=== PATIENT | male | born 1945 | race Caucasian/White ===

== ENCOUNTER 2017-04-11 13:13 | Observation (INO) | payer MEDICARE ==
--- OUTSIDE RECORDS SUMMARY | 2017-04-11 13:54 | XMS REPORT ---
:1945 External Reference #:[id number] Author Organization [facility] Address [address] [place] [address] Phone [phone] Care Team Providers Name Role Phone Raymundo Wooten M.D. Care Team Information Geospatial Specialist Unavailable Jose Arambula Primary Care Physician Unavailable Payers Type Date Identification Numbers Payment Provider Subscriber Commercial Policy Number: [id number] [facility] PayID: [id number] [address] [address] [place] [address] Problems Date Description Provider Status Onset: 04/04/2017 Essential hypertension Luis Bowles MD Active Onset: 04/04/2017 Cervico-occipital neuralgia Luis Bowles MD Active Onset: 04/04/2017 Otalgia Luis Bowles MD Active Family History Date Family Member(s) Problem(s) Comments General Cancer General Vertigo Social History Type Date Description Comments Occupation Retired Cigarette Use Former Cigarette Smoker 1 Pack Smoked for 6 years. Quit at Daily age 22. Cigars Never Smoked Cigars Pipe Former Pipe Smoker, Smoked 4 Smoked for 8 years. Quit at Pipes Daily age 30. Smokeless Tobacco Never Used Smokeless Tobacco ETOH Use Does not drink alcohol Allergies, Adverse Reactions, Alerts Date Description Reaction Status Severity Comments 04/04/2017 NKDA active Medications Medication Date Status Form Strength Qnty SIG Indications Ordering Provider Simvastatin / Active Tablets 20mg Jose Arambula 0000 Levothyroxine / Active Tablets 50mcg Jose Arambula Sodium 0000 Meclizine HCL / Active Tablets 25mg Magdietderks 0000 M.D., Raymundo Flecainide / Active Tablets 50mg Stefek,Micheal Acetate 0000 M.D. Atenolol / Active Tablets 25mg Heetderks 0000 M.D., Raymundo Clobetasol / Active Cream 0.05% Unknown Propionate 0000 Metoprolol / Active Tablets 50mg Take One Unknown Tartrate 0000 Tablet By Mouth Every Morning And Take Two Tablets By Mouth A Aspirin 81 Low / Active Chewtabs 81mg daily Unknown Dose 0000 Ranitidine HCL / Active Tablets 150mg bid Unknown 0000 Rolaids / Active Chewtabs 550-110mg 2 daily Unknown 0000 Vital Signs Date Vital Result Comment 04/04/2017 BP Systolic 163 mmHg BP Diastolic 101 mmHg Heart Rate 67 /min Respiratory Rate 18 /min Weight 245.00 lb Weight in kg's 111.132 Height 72 inches 6'0" Height in cm's 182.9 cm BMI (Body Mass Index) 33.2 kg/m2 Results Description No Information Procedures Date CPT Code Description Status 04/04/2017 40699 Tympanometry Completed Encounters Type Date Location Provider CPT E/M Dx Office Visit 04/04/2017 9:45a [place] 03/10/07 [place] [address] H92.02 M54.81 Plan of Care 04/04/2017 - Luis Bowles MDH92.02 Otalgia, left earComments:My clinical impression is a patient with otalgia most likely radiate from occipital neuralgia I suggest warm compresses nonsteroidals and occasional inject the area with steroids and a anesthetic for intractable symptoms he will return back if necessary no ear pathology identified.M54.81 Occipital neuralgia
[2017-04-11 16:38] LABS: ABS Basophils 0 10^3/ul (0-0.2); ABS Eosinophils 0.1 10^3/ul (0-0.6); ABS Lymphocytes 1.6 10^3/ul (1.0-4.8); ABS Monocytes 0.4 10^3/ul (0-0.8); ABS Neutrophils 4.6 10^3/ul (1.5-7.7); ABS Nucleated RBC 0 10^3/ul; Eosinophil % 1.1 % (0-6); Hematocrit 45 % (42-52); Hemoglobin 15.7 g/dl (14.0-18.0); Lymphocyte % 23.5 % (25-47); Mean Corpuscular HGB Conc 35 g/dl (31-36); Mean Corpuscular Hemoglobin 31 pg (27-31); Mean Corpuscular Volume 90 fL (80-94); Mean Platelet Volume 10 um3 (7.4-10.4); Nucleated Red Blood Cells % 0.1; Platelet Count 173 10^3/ul (150-450); Red Blood Count 5.05 10^6/ul (4.0-5.4); Red Cell Distribution Width 14 % (10.5-15); White Blood Count 6.7 10^3/ul (3.5-10.8)
[2017-04-11 16:53] LABS: Urine Appearance Clear; Urine Blood 1+ (Negative); Urine Color Yellow; Urine Ketones Trace (Negative); Urine Protein Negative (Negative); Urine Specific Gravity 1.016 (1.010-1.030); Urine Urobilinogen Negative (Negative)
[2017-04-11 17:00] LABS: EGFR Non-African American 79.6 (>60)
--- NOTE | 2017-04-11 17:28 | RAD ---
INDICATION: Shortness of breath. COMPARISON: Comparison is made with a prior chest x-ray study from October 27, 2013. TECHNIQUE: Dual-energy PA and lateral views of the chest were obtained. FINDINGS: The heart is within normal limits in size. Mediastinal and hilar contours appear within normal limits. There is elevation of the right hemidiaphragm which is unchanged. The lungs are hyperinflated and clear. No pleural effusion is seen. IMPRESSION: FINDINGS SUGGESTIVE OF COPD, NO EVIDENCE FOR ACUTE FINDING.
[2017-04-11] MEDS ORDERED: Iohexol 350* (CONTRAST) 500 ML MDV IV ONE (18:03)
[2017-04-11] MEDS ORDERED: Enoxaparin(*) 100 MG/ML SYR SUBCUT ONE (18:20)
--- NOTE | 2017-04-11 18:24 | RAD ---
INDICATION: Shortness of breath. COMPARISON: Comparison is made with a prior chest x-ray study from April 11, 2007. TECHNIQUE: A CT angiogram of the chest was performed with intravenous following intravenous injection of 84 ml of Omnipaque 350 nonionic contrast. Contiguous axial sections were obtained from the lung apices through the lung bases. Images were reconstructed in the coronal and sagittal planes. FINDINGS: There are intraluminal filling defects bilaterally in upper lobe segmental artery branches, within the distal portion of the main pulmonary arteries, the right interlobar artery and bilateral lower lobe segmental artery branches. The heart is within normal limits in size. No pericardial effusion is present. The thoracic aorta is normal in caliber and demonstrates homogeneous contrast opacification. No significant enlarged mediastinal or hilar lymph nodes are seen. Images of the upper abdomen demonstrate fatty infiltration of the liver. The patient is status post cholecystectomy. There is a small a moderate size hiatal hernia. There are mild dependent bilateral lower lobe infiltrates most consistent with atelectasis. No pleural effusion is present. No significant focal osseous abnormality is seen. The results of this exam were discussed with the referring clinician. IMPRESSION: MULTIPLE BILATERAL PULMONARY EMBOLI.
--- NOTE | 2017-04-11 18:59 | ED ---
Radha Mcgregor Nilda, scribed for Justin Rogers MD on 04/11/17 at 1623 . Respiratory - HPI Summary HPI Summary: This patient is a 71 year old M presenting to [facility] accompanied by with a chief complaint of constant SOB since waking up this morning. The patient rates the pain 0/10 in severity. Symptoms aggravated by exertion and alleviated by rest. Patient reports palpitations, non-productive cough, and wheezing. Patient denies CP, fever, and chills. No PMHx asthma or COPD. Pt states no new medications. - History of Current Complaint Chief Complaint: EDShortnessOfBreath Stated Complaint: SOB Time Seen by Provider: 04/11/17 15:54 Hx Obtained From: Patient Onset/Duration: Sudden Onset, Lasting Hours, Still Present Timing: Constant Pain Intensity: 0 Character: Cough (Nonproductive) Aggravating Factor(s): Exertion Alleviating Factor(s): Rest Associated Signs and Symptoms: SOB, Wheezing - Allergy/Home Medications Allergies/Adverse Reactions: Allergies Allergy/AdvReac Type Severity Reaction Status Date / Time No Known Allergies Allergy Verified 03/21/15 14:01 PMH/Surg Hx/FS Hx/Imm Hx Endocrine/Hematology History: Reports: Hx Thyroid Disease Denies: Hx Diabetes, Hx Systemic Lupus Erythematosus Cardiovascular History: Reports: Hx Hypercholesterolemia, Hx Hypertension Denies: Hx Angina, Hx Congestive Heart Failure, Hx Coronary Artery Disease, Hx Myocardial Infarction, Hx Pacemaker/ICD, Hx Valvular Heart Disease Respiratory History: Reports: Hx Sleep Apnea - CPAP Denies: Hx Asthma GI History: Reports: Hx Gastroesophageal Reflux Disease History: Reports: Hx Kidney Stones, Other Problems/Disorders - acid reflux Musculoskeletal History: Reports: Hx Arthritis, Hx Orthopedic Injury - hx broken ankle Denies: Hx Rheumatoid Arthritis Sensory History: Reports: Hx Contacts or Glasses Denies: Hx Hearing Aid Opthamlomology History: Reports: Hx Contacts or Glasses Neurological History: Reports: Hx Seizures - after a fever Psychiatric History: Denies: Hx Panic Disorder - Surgical History Surgery Procedure, Year, and Place: cholecystectomy. umbilical hernia repair. Left inguinal hernia repair Hx Anesthesia Reactions: No Infectious Disease History: No Infectious Disease History: Denies: Traveled Outside the [place] in Last 30 Days - Family History Known Family History: Positive: Hypertension - Social History Alcohol Use: None Hx Substance Use: No Substance Use Type: Reports: None Hx Tobacco Use: Yes Smoking Status (MU): Former Smoker Type: Cigarettes Length of Time of Smoking/Using Tobacco: 16 years. started in 2 and quite 1977. smoked 1/2ppd Have You Smoked in the Last Year: No Review of Systems Negative: Fever, Chills Positive: Palpitations. Negative: Chest Pain Positive: Shortness Of Breath, Cough, Other - wheezing All Other Systems Reviewed And Are Negative: Yes Physical Exam - Summary Physical Exam Summary: VITAL SIGNS: Reviewed. GENERAL: Patient is a well-developed and nourished male who is lying comfortable in the stretcher. Patient is not in any acute respiratory distress. HEAD AND FACE: No signs of trauma. No ecchymosis, hematomas or skull depressions. No sinus tenderness. EYES: PERRLA, EOMI x 2, No injected conjunctiva, no nystagmus. EARS: Hearing grossly intact. Ear canals and tympanic membranes are within normal limits. MOUTH: Oropharynx within normal limits. NECK: Supple, trachea is midline, no adenopathy, no JVD, no carotid bruit, no c- spine tenderness, neck with full ROM. CHEST: Symmetric, no tenderness at palpation LUNGS: Clear to auscultation bilaterally. No wheezing or crackles. CVS: Irregular rate and rhythm, S1 and S2 present, no murmurs or gallops appreciated. ABDOMEN: Soft, non-tender. No signs of distention. No rebound no guarding, and no masses palpated. Bowel sounds are normal. EXTREMITIES: FROM in all major joints, no edema, no cyanosis or clubbing. NEURO: Alert and oriented x 3. No acute neurological deficits. Speech is normal and follows commands. SKIN: Dry and warm Triage Information Reviewed: Yes Vital Signs On Initial Exam: Initial Vitals Temp Pulse Resp BP Pulse Ox 98.2 F 79 20 165/75 94 04/11/17 13:22 04/11/17 13:22 04/11/17 13:22 04/11/17 13:22 04/11/17 13:22 Vital Signs Reviewed: Yes Diagnostics - Vital Signs Vital Signs Temp Pulse Resp BP Pulse Ox 04/11/17 16:00 72 14 148/85 92 04/11/17 15:30 77 13 158/93 94 04/11/17 15:17 0 04/11/17 15:16 181/73 04/11/17 13:22 98.2 F 79 20 165/75 94 - Laboratory Lab Results: Lab Results 04/11/17 04/11/17 04/11/17 Range/Units 16:20 16:20 16:20 WBC 6.7 (3.5-10.8) 10^3/ul RBC 5.05 (4.0-5.4) 10^6/ul Hgb 15.7 (14.0-18.0) g/dl Hct 45 (42-52) % MCV 90 (80-94) fL MCH 31 (27-31) pg MCHC 35 (31-36) g/dl RDW 14 (10.5-15) % Plt Count 173 (150-450) 10^3/ul MPV 10 (7.4-10.4) um3 Neut % (Auto) 68.6 (38-83) % Lymph % (Auto) 23.5 L (25-47) % Ransom % (Auto) 6.4 (1-9) % Eos % (Auto) 1.1 (0-6) % Baso % (Auto) 0.4 (0-2) % Absolute Neuts (auto) 4.6 (1.5-7.7) 10^3/ul Absolute Lymphs (auto) 1.6 (1.0-4.8) 10^3/ul Absolute Monos (auto) 0.4 (0-0.8) 10^3/ul Absolute Eos (auto) 0.1 (0-0.6) 10^3/ul Absolute Basos (auto) 0 (0-0.2) 10^3/ul Absolute Nucleated RBC 0 10^3/ul Nucleated RBC % 0.1 D-Dimer, Quantitative (Less Than 230) ng/mL Sodium 137 (133-145) mmol/L Potassium 3.9 (3.5-5.0) mmol/L Chloride 104 (101-111) mmol/L Carbon Dioxide 24 (22-32) mmol/L Anion Gap 9 (2-11) mmol/L BUN 18 (6-24) mg/dL Creatinine 0.94 (0.67-1.17) mg/dL Est GFR ( Amer) 102.3 (>60) Est GFR (Non-Af Amer) 79.6 (>60) BUN/Creatinine Ratio 19.1 (8-20) Glucose 118 H (70-100) mg/dL Calcium 10.0 (8.6-10.3) mg/dL Total Bilirubin 1.90 H (0.2-1.0) mg/dL AST 17 (13-39) U/L ALT 27 (7-52) U/L Alkaline Phosphatase 50 (34-104) U/L Total Creatine Kinase 96 (10-223) U/L CK-MB (CK-2) 2.6 (0.6-6.3) ng/mL Troponin I 0.00 (<0.04) ng/mL C-Reactive Protein < 1.00 (< 5.00) mg/L B-Natriuretic Peptide 63 ( - 100) pg/mL Total Protein 7.2 (6.4-8.9) g/dL Albumin 4.1 (3.2-5.2) g/dL Globulin 3.1 (2-4) g/dL Albumin/Globulin Ratio 1.3 (1-3) Urine Color Urine Appearance Urine pH (5-9) Ur Specific Letts (1.010-1.030) Urine Protein (Negative) Urine Ketones (Negative) Urine Blood (Negative) Urine Nitrate (Negative) Urine Bilirubin (Negative) Urine Urobilinogen (Negative) Ur Leukocyte Esterase (Negative) Urine WBC (Auto) (Absent) Urine RBC (Auto) (Absent) Urine Bacteria (Absent) Urine Glucose (Negative) Influenza A (Rapid) (Negative) Influenza B (Rapid) (Negative) 04/11/17 04/11/17 04/11/17 Range/Units 16:20 16:30 16:37 WBC (3.5-10.8) 10^3/ul RBC (4.0-5.4) 10^6/ul Hgb (14.0-18.0) g/dl Hct (42-52) % MCV (80-94) fL MCH (27-31) pg MCHC (31-36) g/dl RDW (10.5-15) % Plt Count (150-450) 10^3/ul MPV (7.4-10.4) um3 Neut % (Auto) (38-83) % Lymph % (Auto) (25-47) % Ransom % (Auto) (1-9) % Eos % (Auto) (0-6) % Baso % (Auto) (0-2) % Absolute Neuts (auto) (1.5-7.7) 10^3/ul Absolute Lymphs (auto) (1.0-4.8) 10^3/ul Absolute Monos (auto) (0-0.8) 10^3/ul Absolute Eos (auto) (0-0.6) 10^3/ul Absolute Basos (auto) (0-0.2) 10^3/ul Absolute Nucleated RBC 10^3/ul Nucleated RBC % D-Dimer, Quantitative > 1050 H (Less Than 230) ng/mL Sodium (133-145) mmol/L Potassium (3.5-5.0) mmol/L Chloride (101-111) mmol/L Carbon Dioxide (22-32) mmol/L Anion Gap (2-11) mmol/L BUN (6-24) mg/dL Creatinine (0.67-1.17) mg/dL Est GFR ( Amer) (>60) Est GFR (Non-Af Amer) (>60) BUN/Creatinine Ratio (8-20) Glucose (70-100) mg/dL Calcium (8.6-10.3) mg/dL Total Bilirubin (0.2-1.0) mg/dL AST (13-39) U/L ALT (7-52) U/L Alkaline Phosphatase (34-104) U/L Total Creatine Kinase (10-223) U/L CK-MB (CK-2) (0.6-6.3) ng/mL Troponin I (<0.04) ng/mL C-Reactive Protein (< 5.00) mg/L B-Natriuretic Peptide ( - 100) pg/mL Total Protein (6.4-8.9) g/dL Albumin (3.2-5.2) g/dL Globulin (2-4) g/dL Albumin/Globulin Ratio (1-3) Urine Color Yellow Urine Appearance Clear Urine pH 5.0 (5-9) Ur Specific Letts 1.016 (1.010-1.030) Urine Protein Negative (Negative) Urine Ketones Trace H (Negative) Urine Blood 1+ H (Negative) Urine Nitrate Negative (Negative) Urine Bilirubin Negative (Negative) Urine Urobilinogen Negative (Negative) Ur Leukocyte Esterase Negative (Negative) Urine WBC (Auto) Trace(0-5/hpf) (Absent) Urine RBC (Auto) Trace(0-2/hpf) (Absent) Urine Bacteria Absent (Absent) Urine Glucose Negative (Negative) Influenza A (Rapid) Negative (Negative) Influenza B (Rapid) Negative (Negative) Result Diagrams: 04/11/17 16:20 04/11/17 16:20 Lab Statement: Any lab studies that have been ordered have been reviewed, and results considered in the medical decision making process. - Radiology CXR Radiology Interpretation Completed By: Radiologist - CXR, per radiologist, reveals findings suggestive of COPD. No evidence for acute finding. Dr. Rogers has reviewed this radiology report. - CT CTA chest CT Interpretation Completed By: Radiologist - CTA chest, per radiologist, reveals multiple bilateral pulmonary emboli. Dr. Rogers has reviewed this radiology report. - EKG 1325 Cardiac Rate: NL EKG Rhythm: Sinus Rhythm - 72 bpm EKG Interpretation: Trigemini Disposition - Course Assessment/Plan: This patient is a 71 year old M presenting to [facility] accompanied by with a chief complaint of constant SOB since waking up this morning. The patient rates the pain 0/10 in severity. Symptoms aggravated by exertion and alleviated by rest. Patient reports palpitations, non-productive cough, and wheezing. Patient denies CP, fever, and chills. No PMHx asthma or COPD. Pt states no new medications. In the ED course an IV access was obtained. Patient was placed in a radiographer cardiac catheterization. Patient was started with IV fluids. Labs without any significant abnormality except for D dimer of 1050. UA negative for UTI. Troponin #1: 0.01. EKG shows a NSR w/o ST elevations multiple PVCs. In the monitor patient is in trigemini,. CXR impression: No acute pathology. CTA: positive multiple PE. He was started in lovenox. I discuss my physical exam, findings and test results with Dr. Fontaine from the hospitalist services and she agrees to admit patient to his services. Patient is hemodynamically stable alert and oriented x 3. - Differential Dx - Cardiopulmonary Differential Diagnoses - Cardiopulmonary: Acute Coronary, Acute Dyspnea, Paroxysmal SVT, Paroxysmal VT - Diagnoses Provider Diagnoses: Pulmonary emboli - Physician Notifications Discussed Care Of Patient With: Margarita Fontaine - Hospitalist Time Discussed With Above Provider: 18:28 Instructed by Provider To: Admit As Inpatient - Critical Care Time Critical Care Time: 75-104 min Discharge - Discharge Plan Condition: Stable Disposition: ADMITTED TO [facility] Referrals: Jose Arambula MD [Primary Care Provider] - The documentation as recorded by the Radha munguia Nilda accurately reflects the service I personally performed and the decisions made by , Justin Rogers MD.
[2017-04-11] MEDS ORDERED: Temazepam CAP* 15 MG PO PRN (19:46)
[2017-04-11] MEDS ORDERED: Acetaminophen TAB* 325 MG PO PRN (19:46)
[2017-04-11] MEDS ORDERED: Atenolol TAB* 50 MG PO SCH (21:00)
[2017-04-11] MEDS ORDERED: Atorvastatin* 10 MG TAB PO SCH (21:00)
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
[2017-04-11] MEDS ORDERED: Calcium Carbonate CHEW TAB* 500 MG (TUMS) PO PRN (21:51)
[2017-04-11] MEDS: Flecainide TAB* 100 MG PO SCH (22:08)
[2017-04-12] MEDS ORDERED: Levothyroxine TAB* 50 MCG TAB PO SCH (06:00)
[2017-04-12] MEDS ORDERED: Rivaroxaban TAB(*) 15 MG PO SCH (07:00)
[2017-04-12 08:28] LABS: ABS Basophils 0.1 10^3/ul (0-0.2); ABS Eosinophils 0.1 10^3/ul (0-0.6); ABS Lymphocytes 1.6 10^3/ul (1.0-4.8); ABS Monocytes 0.4 10^3/ul (0-0.8); ABS Neutrophils 2.8 10^3/ul (1.5-7.7); ABS Nucleated RBC 0 10^3/ul; Eosinophil % 1.8 % (0-6); Hematocrit 47 % (42-52); Hemoglobin 15.7 g/dl (14.0-18.0); Lymphocyte % 31.3 % (25-47); Mean Corpuscular HGB Conc 33 g/dl (31-36); Mean Corpuscular Hemoglobin 30 pg (27-31); Mean Corpuscular Volume 91 fL (80-94); Mean Platelet Volume 9 um3 (7.4-10.4); Nucleated Red Blood Cells % 0.1; Platelet Count 176 10^3/ul (150-450); Red Blood Count 5.23 10^6/ul (4.0-5.4); Red Cell Distribution Width 14 % (10.5-15)
[2017-04-12] MEDS: Flecainide TAB* 100 MG PO SCH (08:28)
[2017-04-12 08:44] LABS: EGFR Non-African American 72.4 (>60)
[2017-04-12] MEDS ORDERED: Atenolol TAB* 50 MG PO SCH (09:00)
[2017-04-12 11:36] VITALS: BP 135/83
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
== END 2017-04-12 13:30 | disposition home or self-care (01) ==
LOC: ED 13:13 → MED 18:49 → INTOOBSV 18:49
PROVIDERS: ADMIT Internal Medicine; ATTEND Internal Medicine
DX: I26.99 Other pulmonary embolism without acute cor pulmonale (principal); R06.02 Shortness of breath; R05 Cough; R06.2 Wheezing; Z86.79 Personal history of other diseases of the circulatory system; Z87.19 Personal history of other diseases of the digestive system; Z87.891 Personal history of nicotine dependence; Z87.442 Personal history of urinary calculi
CPT/HCPCS: 36415; 71046; 71275; 80048; 80053; 81003; 81015; 81240; 81241; 82550; 82553; 83090; 83880; 84484; 85025; 85300; 85379; 85610; 85613; 85730; 86140; 86147; 87502; 93005; 99283; A9270-GY; G0378; J1650; Q9967

== ENCOUNTER 2017-05-07 14:20 | Emergency (ER) | payer MEDICARE ==
[2017-05-07] MEDS ORDERED: NS 0.9% 1000 ML* 1,000 ML IV SCH (14:45)
--- NOTE | 2017-05-07 15:13 | RAD ---
HISTORY: Shortness of breath COMPARISONS: April 11, 2017 VIEWS: 1: frontal portable view of the chest at 2:45 PM FINDINGS: LINES AND TUBES: None. CARDIOMEDIASTINAL SILHOUETTE: The cardiomediastinal silhouette is normal for portable technique. PLEURA: The costophrenic angles are sharp. No pleural abnormalities are noted. LUNG PARENCHYMA: There is linear opacification of left lung base. There is hyperinflation. ABDOMEN: The upper abdomen is clear. There is no subphrenic gas. BONES AND SOFT TISSUES: No bone or soft tissue abnormalities are noted. IMPRESSION: MINIMAL LINEAR ATELECTASIS OF THE LEFT LUNG BASE.
[2017-05-07 15:36] LABS: ABS Basophils 0 10^3/ul (0-0.2); ABS Eosinophils 0.1 10^3/ul (0-0.6); ABS Lymphocytes 1.7 10^3/ul (1.0-4.8); ABS Monocytes 0.4 10^3/ul (0-0.8); ABS Neutrophils 3.9 10^3/ul (1.5-7.7); ABS Nucleated RBC 0 10^3/ul; Eosinophil % 1.2 % (0-6); Hematocrit 44 % (42-52); Hemoglobin 15.4 g/dl (14.0-18.0); Mean Corpuscular HGB Conc 35 g/dl (31-36); Mean Corpuscular Hemoglobin 31 pg (27-31); Mean Corpuscular Volume 90 fL (80-94); Mean Platelet Volume 9 um3 (7.4-10.4); Nucleated Red Blood Cells % 0.1; Platelet Count 193 10^3/ul (150-450); Red Blood Count 4.94 10^6/ul (4.0-5.4); Red Cell Distribution Width 14 % (10.5-15); White Blood Count 6.1 10^3/ul (3.5-10.8)
[2017-05-07 15:47] LABS: INR 1.21 (0.77-1.02)
[2017-05-07 15:52] LABS: EGFR Non-African American 62.4 (>60)
[2017-05-07] MEDS ORDERED: Iohexol 350* (CONTRAST) 500 ML MDV IV ONE (16:06)
[2017-05-07 16:08] VITALS: BP 151/81
--- NOTE | 2017-05-07 16:55 | RAD ---
INDICATION: Chest pain. Short of breath. Evaluate for pulmonary embolus. History of recent pulmonary emboli COMPARISON: Chest x-ray May 07, 2017; CTA chest April 11, 2017 TECHNIQUE: Axial source images were obtained from the thoracic inlet to the hemidiaphragms following administration of [address] angiographic technique was utilized. Coronal and sagittal reconstructed images were acquired. CHEST FINDINGS: Neck/thyroid: The visualized neck to include the thyroid appear normal. Chest wall: There are no acute abnormalities of the bony thorax or chest wall. There is no supraclavicular, infraclavicular, or axillary lymphadenopathy. Lungs : There are no pulmonary parenchymal masses or infiltrates. The pulmonary interstitium appears normal. There are no endobronchial lesions. Cardiomediastinal structures: There is no CT evidence of acute pulmonary embolic disease. There is essentially complete lysis of the pulmonary emboli identified recently with only residual defects in fourth and fifth order branches supplying the left lower lobe. The heart is normal in size. There is no pericardial effusion. There is no evidence of aortic aneurysm or dissection. There is no mediastinal or hilar adenopathy. The esophagus appears normal. Pleura : There are no pleural-based masses or effusions. Other: There is hepatomegaly. There is cholecystectomy. IMPRESSION: NO CT EVIDENCE OF ACUTE PULMONARY EMBOLIC DISEASE. NEAR COMPLETE LYSIS OF PREVIOUSLY IDENTIFIED PULMONARY EMBOLI
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
== END 2017-05-07 18:04 | disposition home or self-care (01) ==
LOC: ED 14:20
DX: R06.00 Dyspnea, unspecified (principal); R00.2 Palpitations; I26.99 Other pulmonary embolism without acute cor pulmonale; J98.11 Atelectasis; Z87.891 Personal history of nicotine dependence
CPT/HCPCS: 36415; 71045; 71275; 80053; 82550; 82553; 83605; 83735; 83880; 84443; 84484; 85025; 85610; 85730; 86140; 93005; 99283; Q9967

== ENCOUNTER 2017-05-17 21:06 | Emergency (ER) | payer MEDICARE ==
[2017-05-17 21:46] LABS: ABS Basophils 0 10^3/ul (0-0.2); ABS Eosinophils 0.1 10^3/ul (0-0.6); ABS Lymphocytes 2.6 10^3/ul (1.0-4.8); ABS Monocytes 0.5 10^3/ul (0-0.8); ABS Neutrophils 3.1 10^3/ul (1.5-7.7); ABS Nucleated RBC 0 10^3/ul; Eosinophil % 1.8 % (0-6); Hematocrit 47 % (42-52); Hemoglobin 15.9 g/dl (14.0-18.0); Lymphocyte % 40.9 % (25-47); Mean Corpuscular HGB Conc 34 g/dl (31-36); Mean Corpuscular Hemoglobin 31 pg (27-31); Mean Corpuscular Volume 90 fL (80-94); Mean Platelet Volume 9 um3 (7.4-10.4); Nucleated Red Blood Cells % 0.1; Platelet Count 205 10^3/ul (150-450); Red Blood Count 5.19 10^6/ul (4.0-5.4); Red Cell Distribution Width 14 % (10.5-15); White Blood Count 6.5 10^3/ul (3.5-10.8)
[2017-05-17 21:52] LABS: INR 0.94 (0.77-1.02)
[2017-05-17 22:01] LABS: EGFR Non-African American 69.3 (>60)
[2017-05-17] MEDS ORDERED: Labetalol IV* 5 MG/ML 20 ML VIAL IV PUSH ONE (22:04)
[2017-05-17] MEDS ORDERED: ALPRAZolam TAB* 0.5 MG PO ONE (22:51)
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
[2017-05-17 23:09] VITALS: BP 137/82
== END 2017-05-17 23:08 | disposition home or self-care (01) ==
LOC: ED 21:06
DX: F41.9 Anxiety disorder, unspecified (principal); R00.2 Palpitations; Z87.891 Personal history of nicotine dependence
CPT/HCPCS: 36415; 80053; 83735; 84443; 84484; 85025; 85610; 85730; 93005; 99283; A9270-GY

== ENCOUNTER 2017-06-25 18:31 | Emergency (ER) | payer MEDICARE ==
[2017-06-25 22:39] LABS: ABS Basophils 0 10^3/ul (0-0.2); ABS Eosinophils 0.1 10^3/ul (0-0.6); ABS Lymphocytes 1.9 10^3/ul (1.0-4.8); ABS Monocytes 0.4 10^3/ul (0-0.8); ABS Neutrophils 4.9 10^3/ul (1.5-7.7); ABS Nucleated RBC 0 10^3/ul; Eosinophil % 0.9 % (0-6); Hematocrit 44 % (42-52); Hemoglobin 14.9 g/dl (14.0-18.0); Lymphocyte % 25.6 % (25-47); Mean Corpuscular HGB Conc 34 g/dl (31-36); Mean Corpuscular Hemoglobin 31 pg (27-31); Mean Corpuscular Volume 91 fL (80-94); Mean Platelet Volume 9.5 um3 (7.4-10.4); Nucleated Red Blood Cells % 0.1; Platelet Count 200 10^3/ul (150-450); Red Blood Count 4.86 10^6/ul (4.0-5.4); Red Cell Distribution Width 14 % (10.5-15); White Blood Count 7.3 10^3/ul (3.5-10.8)
[2017-06-25 22:48] LABS: INR 0.99 (0.77-1.02)
[2017-06-25 22:58] LABS: EGFR Non-African American 66.2 (>60)
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
[2017-06-26 00:10] VITALS: BP 106/77
== END 2017-06-26 00:14 | disposition home or self-care (01) ==
LOC: ED 18:31
DX: R00.2 Palpitations (principal); I49.3 Ventricular premature depolarization; E07.9 Disorder of thyroid, unspecified; I10 Essential (primary) hypertension; E78.00 Pure hypercholesterolemia, unspecified; Z86.718 Personal history of other venous thrombosis and embolism; Z86.711 Personal history of pulmonary embolism; Z79.01 Long term (current) use of anticoagulants; K21.9 Gastro-esophageal reflux disease without esophagitis; Z87.442 Personal history of urinary calculi; Z87.891 Personal history of nicotine dependence
CPT/HCPCS: 36415; 80053; 83735; 84443; 84484; 85025; 85610; 85730; 93005; 99283

== ENCOUNTER 2019-03-13 17:06 | Emergency (ER) | payer MEDICARE ==
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
[2019-03-13 18:46] LABS: ABS Eosinophils 0.1 10^3/ul (0-0.6); ABS Lymphocytes 1.3 10^3/ul (1.0-4.8); ABS Monocytes 0.3 10^3/ul (0-0.8); ABS Neutrophils 3.3 10^3/ul (1.5-7.7); Eosinophil % 1.6 %; Hematocrit 42 % (42-52); Hemoglobin 14.4 g/dL (14.0-18.0); Lymphocyte % 25.8 %; Mean Corpuscular HGB Conc 34 g/dL (31-36); Mean Corpuscular Hemoglobin 32 pg (27-31); Mean Corpuscular Volume 95 fL (80-94); Mean Platelet Volume 9.3 fL (7.4-10.4); Nucleated Red Blood Cells % 0.1; Platelet Count 210 10^3/uL (150-450); Red Blood Count 4.46 10^6 /uL (4.18-5.48); Red Cell Distribution Width 15 % (10-15); White Blood Count 5.1 10^3/uL (3.5-10.8)
[2019-03-13 19:03] LABS: ALT 23 U/L (7-52); AST 16 U/L (13-39); Albumin 4.2 g/dL (3.2-5.2); Albumin/Globulin Ratio 1.8 (1-3); Alkaline Phosphatase 57 U/L (34-104); Anion Gap 7 mmol/L (2-11); BUN/Creatinine Ratio 19.7 (8-20); Blood Urea Nitrogen 26 mg/dL (6-24); C Reactive Protein < 1.00 mg/L (<8.01); CO2 Carbon Dioxide 24 mmol/L (22-32); Calcium 9.6 mg/dL (8.6-10.3); Chloride 106 mmol/L (101-111); EGFR African American 64.7 (>60); EGFR Non-African American 53.5 (>60); Globulin 2.4 g/dL (2-4); Glucose 109 mg/dL (70-100); Sodium 137 mmol/L (135-145); Total Protein 6.6 g/dL (6.4-8.9)
[2019-03-13] MEDS ORDERED: Iodixanol* (CONTRAST) 320 MG/ML 100 ML SDV IV ONE (19:06)
[2019-03-13] MEDS ORDERED: NS 0.9% 1000 ML** 1,000 ML IV ONE (19:17)
[2019-03-13 19:55] LABS: Urine Appearance Clear; Urine Bilirubin Negative (Negative); Urine Blood Negative (Negative); Urine Color Straw; Urine Glucose Negative (Negative); Urine Ketones Negative (Negative); Urine Nitrite Negative (Negative); Urine Protein Negative (Negative); Urine Specific Gravity 1.056 (1.010-1.030); Urine Urobilinogen Negative (Negative)
[2019-03-13] MEDS ORDERED: Amoxicillin/Clavulanate TAB* 875 MG PO ONE (22:18)
[2019-03-13 22:41] VITALS: BP 143/75
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
== END 2019-03-13 22:30 | disposition home or self-care (01) ==
LOC: ED 17:06
DX: R10.9 Unspecified abdominal pain (principal); Z87.891 Personal history of nicotine dependence; E03.9 Hypothyroidism, unspecified; Z86.718 Personal history of other venous thrombosis and embolism; I10 Essential (primary) hypertension; E78.00 Pure hypercholesterolemia, unspecified; K21.9 Gastro-esophageal reflux disease without esophagitis; Z86.711 Personal history of pulmonary embolism; Z79.01 Long term (current) use of anticoagulants
CPT/HCPCS: 36415; 74177; 80053; 81003; 83690; 85025; 86140; 96360; 99283; A9270-GY; Q9967